=== PATIENT | female | born 1980 | race Caucasian/White ===

== ENCOUNTER 2020-05-18 13:02 | Emergency (ER) | payer MEDICAID ==
[~2020-05-18] VITALS: Ht 152.4 cm; Wt 117.0 kg
[2020-05-18 13:36] VITALS: BP 148/87
== END 2020-05-18 16:46 | disposition left against medical advice (07) ==
LOC: ER 13:02
DX: Z53.21 Procedure and treatment not carried out due to patient leaving prior to being seen by health care provider (principal)